=== PATIENT | male | born 2000 | race African-American/Black ===

== ENCOUNTER 2022-11-02 01:28 | Emergency (ER) | payer MEDICAID ==
[~2022-11-02] VITALS: Ht 175.3 cm; Wt 59.0 kg
[2022-11-02] MEDS ORDERED: AMOX1TAB16 MT (05:58)
[2022-11-02] MEDS ORDERED: NAPR-681 MT (05:58)
[2022-11-02 06:00] VITALS: BP 128/67
[2022-11-02] MEDS ORDERED: IBUPROFEN 600MG TABLET PO ONE (06:00)
[2022-11-02] MEDS ORDERED: METOCLOPRAMIDE HCL 10MG TABLET PO ONE (06:00)
[2022-11-02] MEDS ORDERED: ACETAMINOPHEN 325MG TABLET PO ONE (06:00)
== END 2022-11-02 06:58 | disposition home or self-care (01) ==
LOC: ER 01:28
DX: R51.9 Headache, unspecified (principal); K08.89 Other specified disorders of teeth and supporting structures
CPT/HCPCS: 99284; J8597